=== PATIENT | female | born 1955 | race Caucasian/White ===

== ENCOUNTER → 2019-07-26 | Outpatient (CLI) | payer OTHER ==
[~2019-07-26] MED LIST: BACLOFEN 10MG T10 M1; HYDROCODON-ACE1 EACH
== END ==
LOC: HYPER 07:13
DX: L97.812 Non-pressure chronic ulcer of other part of right lower leg with fat layer exposed (principal); L23.9 Allergic contact dermatitis, unspecified cause; L01.09 Other impetigo; E78.5 Hyperlipidemia, unspecified; I10 Essential (primary) hypertension; G61.0 Guillain-Barre syndrome; R60.0 Localized edema; R21 Rash and other nonspecific skin eruption; F17.200 Nicotine dependence, unspecified, uncomplicated

== ENCOUNTER → 2019-08-10 | Outpatient (CLI) | payer OTHER | LOC: HYPER 08:45 | DX: L97.812 Non-pressure chronic ulcer of other part of right lower leg with fat layer exposed (principal); I87.2 Venous insufficiency (chronic) (peripheral); E78.5 Hyperlipidemia, unspecified; I10 Essential (primary) hypertension; L23.9 Allergic contact dermatitis, unspecified cause; L01.09 Other impetigo; G61.0 Guillain-Barre syndrome; R60.0 Localized edema; R21 Rash and other nonspecific skin eruption; F17.200 Nicotine dependence, unspecified, uncomplicated ==

== ENCOUNTER → 2020-06-20 | Outpatient (CLI) | payer OTHER | LOC: SJCVC 11:47 | PROVIDERS: ATTEND Internal Medicine Cardiovascular Disease | DX: I10 Essential (primary) hypertension (principal); E78.00 Pure hypercholesterolemia, unspecified; G61.0 Guillain-Barre syndrome; E78.5 Hyperlipidemia, unspecified; Z72.0 Tobacco use ==

== ENCOUNTER → 2021-01-31 | Outpatient (CLI) | payer OTHER | LOC: SJCVCIMAG 12-19 09:46 | PROVIDERS: ATTEND Internal Medicine Cardiovascular Disease | DX: I49.3 Ventricular premature depolarization (principal); I49.1 Atrial premature depolarization; R00.0 Tachycardia, unspecified; I07.1 Rheumatic tricuspid insufficiency; I10 Essential (primary) hypertension; J44.9 Chronic obstructive pulmonary disease, unspecified; I25.10 Atherosclerotic heart disease of native coronary artery without angina pectoris; E78.5 Hyperlipidemia, unspecified; R06.00 Dyspnea, unspecified; R42 Dizziness and giddiness; F17.200 Nicotine dependence, unspecified, uncomplicated; Z79.899 Other long term (current) drug therapy; Z88.8 Allergy status to other drugs, medicaments and biological substances ==